=== PATIENT | female | born 2000 | race Caucasian/White ===

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

== ENCOUNTER 2019-02-26 12:02 | Emergency (ER) | payer MEDICAID ==
[2019-02-26 12:07] VITALS: BP 108/68
--- NOTE | 2019-02-26 12:50 | EDPHY ---
H & P Time Seen by Provider: 02/26/19 12:24 HPI/ROS: CHIEF COMPLAINT: "I have an abscess on my buttock" HISTORY OF PRESENT ILLNESS: 18-year-old immunocompetent female history of polycystic ovarian syndrome complaining of 3 days of progressive pain swelling at the carmen cleft of buttock. No prior history of similar. She does note history of recurrent cystic skin lesions however non in this area previously. No fever no chills. [facility] recommend she go to the ER for evaluation today. PRIMARY CARE PROVIDER: REVIEW OF SYSTEMS: 10 systems reviewed and are negative with exception of illness mentioned in the history of present illness PHYSICAL EXAM (Prior to examination, patient consented to physical exam, hands were washed and my usual and customary physical exam procedures followed) Exam with female enrollment specialist Perlita at bedside 1) GENERAL: Well-developed, well-nourished, alert and oriented. Appears to be in no acute distress. 2) HEAD: Normocephalic 3) HEENT: sclera anicteric 4) LUNGS: Breathing comfortably. 5) SKIN: At the carmen cleft of the buttock she has erythema, induration, tenderness with no active drainage. There is no extension to the perianal region no crepitus. No vesicles. Smoking Status: Current every day smoker Constitutional: Initial Vital Signs Temperature (C) 36.8 C 02/26/19 12:04 Heart Rate 120 H 02/26/19 12:04 Blood Pressure 108/68 02/26/19 12:04 O2 Sat (%) 97 02/26/19 12:04 O2 Delivery Mode Room Air Allergies/Adverse Reactions: Milk Containing Products [dairy] Allergy (Verified 12/28/18 11:14) Penicillins Allergy (Verified 12/28/18 11:14) Home Medications: Medication Instructions Recorded Abilify 12/28/18 Bcp 12/28/18 Excedrin Migraine Geltab 12/28/18 Gabapentin 12/28/18 Prazosin HCl 12/28/18 Cephalexin [Keflex] 500 mg PO TID 7 Days cap 02/26/19 oxyCODONE/APAP 5/325 [Percocet 1 tab PO Q6 #10 tab 02/26/19 5/325] MDM/Departure - MDM Procedures: Procedure: Abscess drainage. The patient's abscess was located on the cleft of buttock consistent with pilonidal abscess . I obtained verbal consent from the patient to drain the abscess who was informed about the possibility of bleeding and pain. Area is prepped draped normal sterile fashion anesthetized 1% lidocaine with epinephrine. 18 gauge needle aspiration with purulent material sent to laboratory for evaluation. The abscess was incised with a scalpel and a large amount of purulent drainage was expressed. I irrigated the wound and placed some packing. The patient tolerated the procedure well. The procedure was performed by myself. ED Course/Re-evaluation: Patient has a pilonidal abscess which was incised and drained in the ER. Today is Friday. Recommend 2 day recheck with PCP and recommend follow up with surgery for long-term management. She feels comfortable being discharged. Will discharge with Keflex and analgesia. Patient feels comfortable being discharged. All questions and concerns addressed by myself. Patient given my usual and customary discharge precautions and instructions regarding their clinical impression. Care of patient under supervision of secondary supervising physician Dr Mariano . - Depart Disposition: Home, Routine, Self-Care Clinical Impression: Pilonidal abscess Condition: Good Instructions: Pilonidal Cyst (ED) Additional Instructions: Return to the ER if you develop fever chills or worsening pain or any other symptoms that concern you Prescriptions: Cephalexin [Keflex] 500 mg PO TID 7 Days cap oxyCODONE/APAP 5/325 [Percocet 5/325] 1 tab PO Q6 #10 tab Referrals: [facility],. [Clinic] - 03/01/19 Lora Puga MD [Medical Doctor] - 5-7 days, call for appt.
== END 2019-02-26 13:03 | disposition home or self-care (01) ==
PROC: 0H98XZZ Drainage of Buttock Skin, External Approach (ICD-10-PCS; principal; 2019-02-26)
DX: L05.01 Pilonidal cyst with abscess (principal)